=== PATIENT | male | born 2000 | race Caucasian/White ===

== ENCOUNTER 2020-03-26 20:04 | Emergency (ER) | payer OTHER ==
[2020-03-26 20:57] LABS: HEMOGLOBIN 12.8 gm/dl (14.0-17.5); RED BLOOD COUNT 4.5 M/UL (4.20-5.50); WHITE BLOOD COUNT 5.2 K/UL (4.5-11.0)
[2020-03-26 21:14] LABS: BUN/CREATININE RATIO 19 (0-10)
== END 2020-03-26 23:30 | disposition home or self-care (01) ==
LOC: ER1 20:04
PROVIDERS: Physician Assistant
DX: T65.91XA Toxic effect of unspecified substance, accidental (unintentional), initial encounter (principal); F19.10 Other psychoactive substance abuse, uncomplicated
CPT/HCPCS: 80053; 80307; 82550; 82553; 83874; 84484; 85025; 93005; 99284

== ENCOUNTER → 2020-03-26 | Outpatient (CLI) | payer OTHER ==
[~2020-03-26] MED LIST: BACTROBAN OINT22 GM EXT; FLEXERIL 10 MG10 MG PO; IBUPROFEN400 MG PO; IBUPROFEN600 MG PO; KEFLEX CAP 500500 MG PO; LODINE CAP 300300 MG PO
== END ==
LOC: MRI 03-13 13:00
DX: R10.11 Right upper quadrant pain (principal)
CPT/HCPCS: 74181

== ENCOUNTER 2021-06-05 19:31 | Emergency (ER) | payer SELFPAY ==
[2021-06-05 20:51] LABS: HEMOGLOBIN 16.3 gm/dl (14.0-17.5); RED BLOOD COUNT 5.64 M/UL (4.20-5.50)
[2021-06-05 21:17] LABS: BUN/CREATININE RATIO 25 (0-10)
== END 2021-06-05 20:47 | disposition left against medical advice (07) ==
LOC: ER1 19:31
PROVIDERS: Student in an Organized Health Care Education/Training Program
DX: R10.9 Unspecified abdominal pain (principal); R11.2 Nausea with vomiting, unspecified; R19.7 Diarrhea, unspecified
CPT/HCPCS: 80053; 83690; 85025; 99281